=== PATIENT | female | born 2000 | race Caucasian/White ===

== ENCOUNTER 2020-09-11 23:34 | Emergency (ER) | payer OTHER, BC ==
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
[2020-09-12 00:12] LABS: Appearance,Urine Cloudy (Clear); Bacteria,Urine Rare /hpf; Bilirubin,Urine Negative (Negative); Blood,Urine Moderate (Negative); Color,Urine Yellow; Glucose,Urine (UA) Negative (Negative); Hyaline Casts,Urine 9 /lpf (0-2); Ketones,Urine Negative (Negative); Leukocyte Esterase,Urine Large (Negative); Mucus,Urine Few /hpf; Nitrite,Urine Negative (Negative); PH, Urine 6.5 (5.0-8.0); Protein,Urine 1+ (Negative); RBC,Urine 62 /hpf (0-5); Specific Gravity,Urine 1.027 (1.001-1.035); Squamous Epithelial Cell,Urine 6 /hpf (0-4); WBC,Urine >182 /hpf (0-5)
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
[2020-09-12] MEDS ORDERED: cefTRIAXone 1,000 MG VIAL (IM USE) IM STA (00:15)
[2020-09-12] MEDS ORDERED: NITROFURANTOIN MONOHYD/M-CRYST 100 MG CAP PO STA (00:15)
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
[2020-09-12 01:51] VITALS: BP 120/78; PULSE 78; RESP 18
[2020-09-12 02:10] VITALS: TEMP 98
[2020-09-13 12:58] LABS: C. trachomatis,PCR Negative (Neg,Equiv); Chlamydia trachomatis Source Urine; N. gonorrhoeae,PCR Negative (Neg,Equiv); Neisseria Source Urine
== END 2020-09-12 02:10 | disposition home or self-care (01) ==
LOC: EC 23:34
DX: N39.0 Urinary tract infection, site not specified (principal); M25.571 Pain in right ankle and joints of right foot; F17.290 Nicotine dependence, other tobacco product, uncomplicated; Z88.2 Allergy status to sulfonamides; V43.53XA Car driver injured in collision with pick-up truck in traffic accident, initial encounter; Y92.415 Exit ramp or entrance ramp of street or highway as the place of occurrence of the external cause; Y93.89 Activity, other specified
CPT/HCPCS: 99284; 96372; 81001; 81025; 87491; 87591; 72170; 73610; 71045; J0696

== ENCOUNTER 2024-06-29 11:10 | Outpatient (CLI) | payer BC ==
[2024-06-29 13:10] VITALS: BP 128/89; PULSE 110; RESP 16; TEMP 98.1
--- NOTE | 2024-07-08 07:48 | P.MSEPDOC ---
Presenting Problems - Arrival Data Date of Arrival on Unit: 06/29/24 Time of Arrival on Unit: 11:10 Mode of Transport: Ambulatory - Complaint OB-Reason for Admission/Chief Complaint: Possible Onset of Labor Comment: contractions for 30 min Medical History - Information : 1 Para: 0 Term: 0 : 0 Abortions: Spontaneous or Elective: 0 Number of Living Children: 0 - Gestational Age Gestational Age by ROSE MARY (wks/days): 35 Weeks and 2 Days - History Complications: Smoker Comment: nicotine vape Review of Systems - Review of Systems Constitutional: No problems Breast: No problems ENT: No problems Cardiovascular: No problems Respiratory: No problems Gastrointestinal: No problems Genitourinary: No problems Musculoskeletal: No problems Neurological: No problems Skin: No problems Vital Signs - Temperature Temperature: 98.1 F Temperature Source: Oral - Pulse Right Pulse Rate: 110 Pulse Assessment Method: Automatic Cuff - Respirations Respiratory Rate: 16 Oxygen Delivery Method: Room Air O2 Sat by Pulse Oximetry: 97 - Blood Pressure Right Arm Sitting Blood Pressure: 128/89 Blood Pressure Mean: 102 Blood Pressure Source: Automatic Cuff Medical Screen Scoring - Cervical Exam Dilation (cm): 0 Effacement (%): 0 Station: -3 Membranes: Intact - Uterine Contractions Frequency From (mins): 1 Frequency To (mins): 10 Duration From (seconds): 30 Duration To (seconds): 60 Intensity: Mild Resting: Soft to palpation - Assessment - Baby A Baseline FHR: 130 Heart Rate - NICHD Category: Category I (Normal) NST: Reactive Physician Notification - Physician Notified Physician Notified Date: 06/29/24 Physician Notified Time: 12:55 Physician: Shagufta Pedersen New Order Received: Yes (dc) - Notification Comment Comment: no distress, no cervical change Maternal Triage Index - Maternal Triage Index Presenting for scheduled procedure w/no complaint: No - Stat/Priority 1 Stat Priority 1: No - Urgent/Priority 2 Urgent Priority 2: No - Prompt/Priority 3 Prompt Priority 3: Yes Criteria Met for Priority 3: 35.2 contractions Disposition - Disposition OB Disposition: Triage, Discharge to home, Written follow up instructions reviewed Discharge Date: 06/29/24 Discharge Time: 12:58 I agree with the RN Medical Screening Exam: Yes Case reviewed; plan agreed upon as documented in EMR&OBIX.: Yes Diagnosis: FALSE LABOR BEFORE 37 COMPLETED WEEKS OF GEST, THIRD TRI
== END 2024-06-29 12:58 | disposition home or self-care (01) ==
LOC: FBPOP 11:10
PROVIDERS: ATTEND Obstetrics & Gynecology Obstetrics
DX: O47.03 False labor before 37 completed weeks of gestation, third trimester (principal); Z3A.35 35 weeks gestation of pregnancy; Z88.0 Allergy status to penicillin; Z87.891 Personal history of nicotine dependence
CPT/HCPCS: 59025; 99213

== ENCOUNTER 2024-07-26 10:49 | Outpatient (CLI) | payer BC ==
[2024-07-26] MEDS: ACETAMINOPHEN TAB 500 MG TAB PO STA (11:51)
[2024-07-26] MEDS: LACTATED RINGERS 1,000 ML IV ONE (11:51)
[2024-07-26 12:28] VITALS: BP 124/83; PULSE 90; RESP 18; TEMP 98.2
--- NOTE | 2024-07-27 08:24 | P.MSEPDOC ---
Presenting Problems - Arrival Data Date of Arrival on Unit: 07/26/24 Time of Arrival on Unit: 10:49 Mode of Transport: Ambulatory - Complaint OB-Reason for Admission/Chief Complaint: Headache, Pain Comment: headache rated at a 4 and lower abdominal pain while moving rated at a 6/10. Medical History - Information : 1 Para: 0 Term: 0 : 0 Abortions: Spontaneous or Elective: 0 Number of Living Children: 0 - Gestational Age Gestational Age by ROSE MARY (wks/days): 39 Weeks and 1 Days Review of Systems - Review of Systems Constitutional: No problems Breast: No problems ENT: No problems Cardiovascular: No problems Respiratory: No problems Gastrointestinal: No problems Genitourinary: No problems Musculoskeletal: No problems Neurological: No problems Skin: No problems Vital Signs - Temperature Temperature: 98.2 F Temperature Source: Temporal Artery Scan - Pulse Right Pulse Rate: 90 - Respirations Respiratory Rate: 18 - Blood Pressure Right Arm Blood Pressure: 124/83 Blood Pressure Mean: 96 Blood Pressure Source: Automatic Cuff Medical Screen Scoring - Assessment - Baby A Baseline FHR: 135 Heart Rate - NICHD Category: Category I (Normal) NST: Reactive Physician Notification - Physician Notified Physician Notified Date: 07/26/24 Physician Notified Time: 11:36 Physician: Dr Pedersen New Order Received: Yes - Notification Comment Comment: Spoke with Dr Pedersen. Notified of patient's complaints of headache and abdominal pain with movement. Notified of reactive NST and patient's vitals. Dr Pedersen ordered a liter of LR, IV insertion, and oral tylenol. Maternal Triage Index - Maternal Triage Index Presenting for scheduled procedure w/no complaint: No - Stat/Priority 1 Stat Priority 1: No - Urgent/Priority 2 Urgent Priority 2: No - Prompt/Priority 3 Prompt Priority 3: No - Non-Urgent/Priority 4 Non-Urgent Priority 4: Yes Criteria Met for Priority 4: pt complains of headache, lower abdominal pain without contractions. vital signs WNL. Disposition - Disposition OB Disposition: Discharge to home Discharge Date: 07/26/24 Discharge Time: 12:25 I agree with the RN Medical Screening Exam: Yes Case reviewed; plan agreed upon as documented in EMR&OBIX.: Yes Diagnosis: RELATED CONDITIONS, UNSPECIFIED, THIRD TRIMESTER
== END 2024-07-26 12:29 | disposition home or self-care (01) ==
LOC: FBPOP 10:49
PROVIDERS: ATTEND Obstetrics & Gynecology Obstetrics
DX: O26.893 Other specified pregnancy related conditions, third trimester (principal); Z3A.39 39 weeks gestation of pregnancy; R10.9 Unspecified abdominal pain; R51.9 Headache, unspecified; Z88.2 Allergy status to sulfonamides
CPT/HCPCS: 59025; 96360; 99214

== ENCOUNTER 2024-07-30 05:20 | Inpatient (IN) | payer BC ==
[2024-07-30] MEDS ORDERED: LIDOCAINE 0.5% (PF) 5 MG/ML (50 ML SDV) SQ PRN (05:32)
[2024-07-30] MEDS ORDERED: TRANEXAMIC 1,000 MG/100ML-NACL 1,000 MG in EMPTY BAG 1 BAG IV PRN (05:32)
[2024-07-30] MEDS ORDERED: TERBUTALINE 1 MG/ML VIAL SQ PRN (05:32)
[2024-07-30] MEDS ORDERED: METHYLERGONOVINE 0.2 MG/ML 1 ML AMP IM PRN (05:32)
[2024-07-30] MEDS ORDERED: OXYTOCIN 10 UNIT/ML 1 ML VIAL IM PRN (05:32)
[2024-07-30] MEDS ORDERED: miSOPROStoL 200 MCG TAB RECTAL PRN (05:32)
[2024-07-30] MEDS ORDERED: CARBOPROST TROMETHAMINE 250 MCG/ML 1 ML AMP IM PRN (05:32)
[2024-07-30] MEDS ORDERED: miSOPROStoL 200 MCG TAB PO PRN (05:32)
[2024-07-30 06:20] LABS: Basophils % (A) 0 %; Eosinophils # (A) 0.1 k/uL (0-0.7); Eosinophils % (A) 1 %; HCT 30.7 % (34.0-46.0); HGB 9.8 gm/dL (11.4-16.0); Hypochromasia Moderate; Lymphocytes # (A) 2.2 k/uL (1.0-4.8); Lymphocytes % (A) 16 %; MCH 23.9 pg (25.0-35.0); MCV 74.8 fL (80.0-100.0); Mean Platelet Volume 8.5; Microcytosis Slight; Monocytes # (A) 0.6 k/uL (0-1.0); Monocytes % (A) 4 %; Neutrophils # (A) 10.8 k/uL (1.3-7.7); Neutrophils % (A) 78 %; Platelet Count 325 k/uL (150-450); Poikilocytosis Moderate; RDW 15.7 % (11.5-15.5); WBC 13.9 k/uL (3.8-10.6)
[2024-07-30] MEDS: LACTATED RINGERS 1,000 ML IV SCH ×2 (07:14→18:19)
[2024-07-30] MEDS: OXYTOCIN 30 UNITS/500 ML NS 30 UNIT in SALINE 1 500ML.BAG IV SCH (08:54)
--- NOTE | 2024-07-30 09:12 | P.HPOB ---
History of Present Illness H&P Date: 07/30/24 Chief Complaint: IUP at 39-5/7 weeks, spontaneous rupture of membranes This is a 24-year-old 1 para 0 at 39-5/7 weeks, estimated due date of 08/01 based on first trimester ultrasound. Patient presented to labor and delivery with complaints of spontaneous rupture of membranes around 5 AM, clear in nature. Patient notes good movement. Patient has been receiving routine care which has been essentially uncomplicated. 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 Patient denies any recent outbreaks. On blood work this patient is a blood type of O+, rubella status nonimmune, hepatitis B surface engine negative, HIV negative, RPR is nonreactive, grew beta strep cultures negative. Review of Systems Constitutional: Denies chills, Denies fatigue, Denies fever Ears, nose, mouth and throat: Denies headache Respiratory: Denies dyspnea Gastrointestinal: Denies nausea, Denies vomiting Genitourinary: Reports Past Medical History Past Medical History: No Reported History History of Any Multi-Drug Resistant Organisms: None Reported Past Surgical History: No Surgical Hx Reported Past Anesthesia/Blood Transfusion Reactions: No Reported Reaction Past Psychological History: Depression Smoking Status: Vaper Past Alcohol Use History: None Reported Past Drug Use History: None Reported Medications and Allergies Home Medications Medication Instructions Recorded Confirmed Type Calcium Carbonate [Tums] 500 mg PO TID 07/26/24 07/30/24 History Omeprazole 20 mg PO DAILY 07/26/24 07/30/24 History Ondansetron [Zofran] 1 tab PO Q6HR 07/30/24 07/30/24 History Allergies Allergy/AdvReac Type Severity Reaction Status Date / Time Sulfa (Sulfonamide Allergy Unknown Verified 07/30/24 05:28 Antibiotics) Childhood Exam Osteopathic Statement: *. No significant issues noted on an osteopathic structural exam other than those noted in the History and Physical/Consult. Vital Signs Temp Pulse Resp BP Pulse Ox 07/30/24 05:42 97.0 F L 109 H 16 124/86 99 07/30/24 05:37 97.0 F L 109 H 16 124/86 99 Intake and Output 07/29/24 07/30/24 07/30/24 22:59 06:59 14:59 Other: # Voids 1 Weight 75.296 kg Targeted physical exam is performed this date General Is well-nourished well- developed female in no acute distress, breathing is nonlabored, abdomen is noted to be gravid, heart tones are noted to be category 1 and she is jagjit irregularly, on cervical exam upon admission per RN she was 2/50/-2 station grossly ruptured with positive AmniSure. Results Result Diagrams: 07/30/24 06:05 Abnormal Lab Results - Last 24 Hours (Table) 07/30/24 Range/Units 06:05 WBC 13.9 H (3.8-10.6) k/uL Hgb 9.8 L (11.4-16.0) gm/dL Hct 30.7 L (34.0-46.0) % MCV 74.8 L (80.0-100.0) fL MCH 23.9 L (25.0-35.0) pg RDW 15.7 H (11.5-15.5) % Neutrophils # 10.8 H (1.3-7.7) k/uL Assessment and Plan (1) Term Current Visit: Yes Status: Acute Code(s): Z34.90 - ENCNTR FOR SUPRVSN OF NORMAL , UNSP, UNSP TRIMESTER SNOMED Code(s): 22262811 Plan: 24-year-old 1 para 0 at 39-5/7 weeks that presents to labor and delivery with complaints of spontaneous rupture of membranes around 5 AM. Patient is admitted to labor and delivery. No contractions have been appreciated therefore Pitocin augmentation of labor is begun. Options for analgesia are discussed including Nubain, nitrous, epidural. Patient will consider.
[2024-07-30] MEDS ORDERED: NALBUPHINE 10 MG/ML (10 ML MDV) IV PRN (09:26)
[2024-07-30] MEDS ORDERED: SODIUM CHLORIDE 0.9% 250 ML BAG ONE (11:31)
[2024-07-30] MEDS ORDERED: ROPIVACAINE 5 MG/ML 30 ML VIAL ONE (11:31)
[2024-07-30] MEDS ORDERED: fentaNYL (PF) 50 MCG/ML 5 ML AMP ONE (11:31)
[2024-07-30] MEDS: CITRIC ACID-SODIUM CITRATE 15 ML CUP PO ONE (15:21)
[2024-07-30] MEDS ORDERED: ONDANSETRON 4 MG/2 ML VIAL ONE (15:30)
[2024-07-30] MEDS ORDERED: SUCCINYLCHOLINE CHLORIDE 200 MG/10 ML VIAL IV ONE (15:30)
[2024-07-30] MEDS ORDERED: PROPOFOL 10 MG/ML 20 ML VIAL IV ONE (15:30)
[2024-07-30] MEDS ORDERED: DEXAMETHASONE SOD PHOSPHATE 4 MG/ML 1 ML VIAL ONE (15:30)
[2024-07-30] MEDS ORDERED: HYDROmorphone (PF) 1 MG/ML ONE (15:30)
[2024-07-30] MEDS ORDERED: MORPHINE SULFATE (PF) 0.3 MG/0.3 ML SYR ONE (15:30)
[2024-07-30] MEDS ORDERED: NALBUPHINE (ANES) 10 MG/ML - 1 ML AMP ONE (15:30)
[2024-07-30] MEDS ORDERED: OXYTOCIN 30 UNITS/500 ML NS BAG IV ONE (15:30)
[2024-07-30] MEDS ORDERED: HYDROmorphone 0.5 MG/0.5 ML SYRINGE IVP PRN (16:40)
--- NOTE | 2024-07-30 16:40 | P.OP ---
Date of Procedure: 07/30/24 Preoperative Diagnosis: IUP at 39-5/7 weeks, spontaneous rupture of membrane nonreassuring heart tones Postoperative Diagnosis: Same Procedure(s) Performed: Primary low-transverse section Anesthesia: epidural Surgeon: Shagufta Pedersen Asset Protection Greeter #1: Rukhsana Barillas Estimated Blood Loss (ml): 500 IV fluids (ml): 1,000 Urine output (ml): 250 Pathology: other (Placenta) Condition: stable Disposition: observation Indications for Procedure: 24-year-old 1 para 0 at 39-5/7 weeks that presented this morning with complaints of spontaneous rupture of membranes around 5 AM. Patient was a dmitted to labor and delivery. After approximately 4 hours with no contractions appreciated Pitocin augmentation of labor was begun. Patient did progressed to 4 cm and requested epidural. Epidural was placed without difficulty by the anesthesia department. Patient did have a low blood pressure which resolved with ephedrine after epidural placement. heart tones were noted to be category 2 after epidural but then resolved to category 1. heart tones were noted to have a rising baseline, decelerations were appreciated with contractions, category 2 despite Pitocin being turned off multiple position changes. heart tones were discussed with patient and need for primary C- section secondary to nonreassuring heart tones. Patient states understanding and agrees. Anesthesia is notified Operative Findings: Viable male infant delivered at 1600, weight of 8 pounds 8 ounces, Apgars of 9 and 9 at 1 and 5 minutes respectively. Description of Procedure: The patient was taken back to the operating room where epidural anesthesia was found to be in adequate, anesthesia department did proceed with general anesthesia. Prior to initiation of general anesthesia the patient was prepped and draped in the usual fashion. A Pfannenstiel incision was made and extended of the abdominal cavity without difficulty. The bladder peritoneum was elevated and incised and reflected distally. A 2 cm incision was made in the transverse plane of the lower uterine segment to enter the uterus at which time clear fluid was noted. The incision was extended in both directions using the bandage scissors. The head was encountered within the field and delivered up and through the incision where the nose and mouth were thoroughly suctioned. Remainder of the infant was delivered onto the surgical field where the cord was doubly clamped, cut, and the infant was passed for resuscitative measures with weight and Apgars as noted above. A segment of cord was then doubly clamped, cut, and set aside should cord gases become necessary. The placenta was delivered manually, intact, and was grossly normal with a grossly normal three- vessel cord. The uterus was exteriorized and the interior cavity of the uterus swept of any remaining placental and membranous fragments with a laparotomy sponge. The margins of the incision were grasped with Price clamps and the incision closed in 2 layers. First layer was a running locking layer of 0 Vicryl from margin to margin followed by a second layer of imbricating 0 Vicryl from margin to margin. Any small points of bleeding were then made hemostatic with the Bovie. Once hemostasis was achieved, the posterior cul-de-sac was suctioned with a guard and the uterine and ovarian findings are as noted above. The uterus was replaced within the abdominal cavity and the gutters swept of any remaining blood fluid or clot. Small nonbleeding was noted on the left lateral hysterotomy incision a [id number] was used to obtain hemostasis. The incision was again reexamined and hemostasis was noted to be excellent. Any small point of bleeding were made hemostatic with the Bovie. Once hemostasis was achieved the parietal peritoneum was loosely reapproximated. The layer of muscles were examined and made hemostatic with the Bovie. Attention was then turned to the fascia which was closed with a running 0 Vicryl from 1 lateral edge to the other. . The subcutaneous tissues were irrigated, made hemostatic with the Bovie, and reapproximated with a running stitch of 30 plain catgut. The skin was reapproximated with 4-0 Vicryl. Estimated blood loss for the case was approximately 500 mL. All sponge instrument and needle counts are correct. There were no complications. The patient tolerated the procedure well and proceeded to the recovery room in stable condition. Both mother and are resting comfortably in recovery.
[2024-07-30] MEDS ORDERED: ZOLPIDEM 5 MG TAB PO PRN (16:52)
[2024-07-30] MEDS ORDERED: OXYTOCIN 30 UNITS/500 ML NS 30 UNIT in SALINE 1 500ML.BAG IV SCH (16:52)
[2024-07-30] MEDS ORDERED: diphenhydrAMINE 25 MG CAP PO PRN (16:52)
[2024-07-30] MEDS ORDERED: NALOXONE 0.4 MG/ML 1 ML VIAL IV PRN (16:52)
[2024-07-30] MEDS ORDERED: diphenhydrAMINE 50 MG CAP PO PRN (16:52)
[2024-07-30] MEDS ORDERED: diphenhydrAMINE 50 MG/ML 1 ML VIAL IVP PRN ×2 (16:52)
[2024-07-30] MEDS ORDERED: SIMETHICONE 80 MG CHEWABLE PO PRN (16:52)
[2024-07-30] MEDS ORDERED: ONDANSETRON 4 MG/2 ML VIAL IVP PRN (16:52)
[2024-07-30] MEDS: ACETAMINOPHEN IV (For NPO) 1,000 MG in EMPTY BAG 1 BAG IVPB ONE (18:06)
[2024-07-30] MEDS: METOCLOPRAMIDE 5 MG/ML 2 ML VIAL IVP PRN (19:32)
[2024-07-30] MEDS: IBUPROFEN IV 800 MG in SODIUM CHLORIDE 0.9% 250 ML IV ONE (21:48)
[2024-07-30] MEDS: SENNOSIDES-DOCUSATE SODIUM 1 EACH TAB PO SCH (21:48)
[2024-07-31] MEDS: ACETAMINOPHEN TAB 500 MG TAB PO SCH (01:19)
[2024-07-31 05:27] LABS: Anisocytosis Slight; Basophils % (A) 0 %; Eosinophils % (A) 0 %; HCT 23.1 % (34.0-46.0); Hypochromasia Marked; Lymphocytes # (A) 1.7 k/uL (1.0-4.8); Lymphocytes % (A) 8 %; MCH 24.1 pg (25.0-35.0); MCHC 31.7 g/dL (31.0-37.0); MCV 76.2 fL (80.0-100.0); Mean Platelet Volume 8.3; Microcytosis Slight; Monocytes # (A) 0.7 k/uL (0-1.0); Monocytes % (A) 4 %; Neutrophils # (A) 17.1 k/uL (1.3-7.7); Neutrophils % (A) 87 %; Platelet Count 243 k/uL (150-450); Poikilocytosis Slight; RBC 3.03 m/uL (3.80-5.40); WBC 19.7 k/uL (3.8-10.6)
[2024-07-31 05:32] LABS: HGB 7.3 gm/dL (11.4-16.0)
[2024-07-31] MEDS: IBUPROFEN 800 MG TAB PO SCH (06:11)
--- NOTE | 2024-07-31 08:20 | P.PNOBGPC ---
Subjective - Subjective Principal diagnosis: Postop day #1, primary section Interval history: Patient is doing well this morning. She did note some dizziness upon walking. She has had 1 spontaneous void. She states pain is well-controlled. Lochia is noted to be minimal to moderate. She is breast-feeding without difficulty. Patient reports: Reports appetite normal, Reports voiding normally, Reports pain well controlled, Reports ambulating normally : doing well Objective - Vital Signs Latest vital signs: Vital Signs Temp Pulse Resp BP Pulse Ox 07/31/24 00:00 98.5 F 94 18 119/75 98 07/30/24 20:30 97.3 F L 84 16 116/74 97 07/30/24 18:48 97.1 F L 106 H 16 130/79 99 07/30/24 18:33 105 H 18 124/74 100 07/30/24 18:18 93 16 122/94 100 07/30/24 18:03 97 16 124/75 100 07/30/24 17:48 108 H 16 134/76 100 07/30/24 17:33 103 H 16 131/88 100 07/30/24 17:18 115 H 20 137/89 98 07/30/24 17:03 95 20 129/83 100 07/30/24 16:48 97.0 F L 95 18 126/83 99 Intake and Output 07/30/24 07/31/24 07/31/24 22:59 06:59 14:59 Intake Total 66.2 240 Output Total 830 1500 Balance -763.8 -1260 Intake: Intake, IV Titration 16.2 Amount Oxytocin 30 Units/500 ml 16.2 Ns 30 unit In Saline 1 500ml.bag @ Per Protocol IV .Q0M [facility] Rx#:[id number] Oral 50 240 Output: Urine 300 1500 Uretheral (Kline) 950 Output, Quantitative 530 Blood Loss Other: Voiding Method Indwelling Catheter - Exam Extremities: Present: normal, edema Abdomen: Present: normal appearance, soft Incision: Present: normal, dry, intact Uterus: Present: normal, firm - Labs Labs: Abnormal Lab Results - Last 24 Hours (Table) 07/31/24 Range/Units 03:49 WBC 19.7 H (3.8-10.6) k/uL RBC 3.03 L (3.80-5.40) m/uL Hgb 7.3 L D (11.4-16.0) gm/dL Hct 23.1 L (34.0-46.0) % MCV 76.2 L (80.0-100.0) fL MCH 24.1 L (25.0-35.0) pg RDW 16.0 H (11.5-15.5) % Neutrophils # 17.1 H (1.3-7.7) k/uL Assessment and Plan (1) Term Current Visit: Yes Status: Acute Code(s): Z34.90 - ENCNTR FOR SUPRVSN OF NORMAL , UNSP, UNSP TRIMESTER SNOMED Code(s): 66828061 (2) Non-reassuring heart tones, delivered, current hospitalization Current Visit: Yes Status: Acute Code(s): O76 - ABNLT IN HEART RATE AND RHYTHM COMP LABOR AND DELIVERY SNOMED Code(s): 002559356 (3) Acute blood loss anemia Current Visit: Yes Status: Acute Code(s): D62 - ACUTE POSTHEMORRHAGIC ANEMIA SNOMED Code(s): 700638302 Plan: 24-year-old G1 now P1 status post primary for nonreassuring heart tones. Patient in addition was anemic during the and was unable to start iron as prescribed, patient's hemoglobin this morning noted to be 7.3 down from 9.8 preoperatively. Will monitor symptoms. If patient continues to be symptomatic with ambulation we will transfuse 1 unit of packed red blood cells. Patient states understanding. All questions are answered regarding receiving blood products. Plan to continue routine care
[2024-07-31] MEDS: FERROUS SULFATE 325 MG TAB PO SCH (09:32)
--- NOTE | 2024-07-31 10:47 | P.PN ---
Progress Note - Text Adequate analgesia. No complications from anesthesia.
[2024-07-31] MEDS: MEASLES-MUMPS-RUBELLA VACC/PF 12,500 UNIT/0.5 ML VIAL SQ ONE (17:12)
[2024-08-01 07:29] VITALS: BP 110/58; PULSE 120; RESP 16; TEMP 97.6
--- NOTE | 2024-08-01 08:38 | P.DS ---
Providers Date of admission: 07/30/24 05:40 Expected date of discharge: 08/01/24 Attending physician: Shagufta Pedersen Primary care physician: Stated None - Discharge Diagnosis(es) (1) Term Current Visit: Yes Status: Acute (2) Non-reassuring heart tones, delivered, current hospitalization Current Visit: Yes Status: Acute (3) Acute blood loss anemia Current Visit: Yes Status: Acute (4) S/P section Current Visit: Yes Status: Acute Hospital Course: 24 yo G1 now P1 that presented to labor and delivery with complaints of SROM on 07/30 at 5 am. She states the fluid was clear in nature. Patient had been receiving routine care with myself and has been essentially uncomplicated. Patient was diagnosed with gestational anemia at 28 weeks and was encouraged to start iron daily. She admits she did not start taking the iron that was recommended. 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 Patient denies any recent outbreaks. Positive rupture of membranes was noted with positive AmniSure. Patient was admitted to labor and delivery. Patient was not noted to be jagjit and after approximately 4 hours Pitocin augmentation of labor was begun. Patient did have 1 episode of hypotension after epidural placement which was treated with ephedrine by the anesthesia department. Patient progressed to 5 cm when recurrent lites were noted. Patient was counseled on need for primary secondary to nonreassuring heart tones. Patient stated understanding and agreed to proceed with primary . Patient was taken back to the operating suite where epidural was found to be not adequate therefore general anesthesia was performed by the anesthesia department. Patient had a viable male at 1600, weight of 8 pounds 8 ounces, Apgars of 9 and 9 at 1 and 5 minutes respectively. Patient's postoperative course has been essentially uneventful. Patient did have acute blood loss anemia hemoglobin of 9.8 on admission down to 7.9 on postoperative day #1. Patient was started on oral iron twice daily. Importance of iron therapy was discussed. Patient was asymptomatic with ambulation. On this postoperative day #2 patient states she is feeling well and would like discharge home. She is ambulating and voiding without difficulty. She has noted positive flatus. She is tolerating a regular diet without nausea or vomiting. Patient Condition at Discharge: Good Plan - Discharge Summary New Discharge Prescriptions: No Action Calcium Carbonate [Tums] 500 mg PO TID Ondansetron [Zofran] 1 tab PO Q6HR Omeprazole 20 mg PO DAILY Discharge Medication List Calcium Carbonate [Tums] 500 mg PO TID 07/26/24 [History] Omeprazole 20 mg PO DAILY 07/26/24 [History] Ondansetron [Zofran] 1 tab PO Q6HR 07/30/24 [History] Follow up Appointment(s)/Referral(s): Shagufta Pedersen DO [Doctor of Osteopathic Medicine] - 2 Weeks Patient Instructions/Handouts: (DC), (GEN) Activity/Diet/Wound Care/Special Instructions: [id number] ibuprofen 600 mg or 3 tablets every 6 hours as needed for pain. No tub baths or intercourse until 6 weeks . Patient is to call the office and make a routine postoperative visit for 2 weeks. Should she have any concerns prior to this visit she is urged to call the office. She is counseled that Steri-Strips will fall off in approximately 7 to 10 days, if they remain at 14 days will be removed at her postoperative appointment. Discharge Disposition: HOME SELF-CARE
== END 2024-08-01 12:45 | disposition home or self-care (01) | DRG 787 ==
LOC: FBPOP 05:20 → 4FBP 05:40
PROVIDERS: ADMIT Obstetrics & Gynecology Obstetrics; ATTEND Obstetrics & Gynecology Obstetrics
PROC: 3E033VJ Introduction of Other Hormone into Peripheral Vein, Percutaneous Approach (ICD-10-PCS; 2024-07-30)
PROC: 10907ZC Drainage of Amniotic Fluid, Therapeutic from Products of Conception, Via Natural or Artificial Opening (ICD-10-PCS; 2024-07-30)
PROC: 4A0HXCZ Measurement of Products of Conception, Cardiac Rate, External Approach (ICD-10-PCS; 2024-07-30)
PROC: 10D00Z1 Extraction of Products of Conception, Low, Open Approach (ICD-10-PCS; principal; 2024-07-30 15:30)
PROC: 30233N1 Transfusion of Nonautologous Red Blood Cells into Peripheral Vein, Percutaneous Approach (ICD-10-PCS; 2024-07-31)
DX: O76 Abnormality in fetal heart rate and rhythm complicating labor and delivery (principal); D62 Acute posthemorrhagic anemia; O98.32 Other infections with a predominantly sexual mode of transmission complicating childbirth; O42.02 Full-term premature rupture of membranes, onset of labor within 24 hours of rupture; Z37.0 Single live birth; Z3A.39 39 weeks gestation of pregnancy; O99.344 Other mental disorders complicating childbirth; I95.2 Hypotension due to drugs; O99.02 Anemia complicating childbirth; O9A.22 Injury, poisoning and certain other consequences of external causes complicating childbirth; T41.3X5A Adverse effect of local anesthetics, initial encounter; F32.A Depression, unspecified; Z88.2 Allergy status to sulfonamides; O26.893 Other specified pregnancy related conditions, third trimester; Z67.40 Type O blood, Rh positive; A60.00 Herpesviral infection of urogenital system, unspecified; X58.XXXA Exposure to other specified factors, initial encounter
CPT/HCPCS: 59025; 84112; 85025; 86850; 86900; 86901; 90707; 99213